=== PATIENT | male | born 1980 | race Caucasian/White ===

== ENCOUNTER 2016-11-10 20:28 | Emergency (ER) | payer BC, OTHER ==
[~2016-11-10] VITALS: Ht 175.3 cm; Wt 62.0 kg
[2016-11-10] MEDS ORDERED: ONDANSETRON 2MG/ML, 2ML IVPush ONE (21:00)
[2016-11-10] MEDS ORDERED: FAMOTIDINE 20 MG/2 ML IVP ONE (21:00)
[2016-11-10] MEDS ORDERED: SODIUM CHLORIDE FLUSH 10ML SYR IVF ONE (21:00)
[2016-11-10] MEDS ORDERED: SODIUM CHLORIDE 0.9% 1,000ML IVBOLUS ONE (21:00)
[2016-11-10] MEDS ORDERED: MAALOX/HYOSCYAMINE/LIDOCAINE 45 ML BTL PO ONE (21:00)
[2016-11-10] MEDS ORDERED: FAMOTIDINE 20 MG/2 ML ONE (21:10)
[2016-11-10] MEDS ORDERED: ONDANSETRON 2MG/ML, 2ML ONE (21:10)
[2016-11-10 21:23] LABS: HEMATOCRIT 48.5 % (39.2-51.8); HEMOGLOBIN 16.5 g/dL (13.7-18.0); WHITE BLOOD COUNT 7.5 x10^3/uL (3.4-10)
[2016-11-10] MEDS ORDERED: MAALOX/HYOSCYAMINE/LIDOCAINE 45 ML BTL ONE (21:24)
[2016-11-10 21:31] LABS: BLOOD UREA NITROGEN 12 mg/dL (7-18)
[2016-11-10 21:34] LABS: ASPARTATE AMINO TRANSFERASE 25 U/L (15-37)
[2016-11-10 22:00] VITALS: BP 102/68
== END 2016-11-10 23:32 | disposition home or self-care (01) ==
LOC: ED 23:22
DX: R10.33 Periumbilical pain (principal); Z88.5 Allergy status to narcotic agent
CPT/HCPCS: 36415; 74020; 76700; 80053; 81003; 83690; 85025; 96361; 96374; 96375; 99285; J2405; J7030; S0028

== ENCOUNTER → 2016-12-20 | Outpatient (CLI) | payer BC ==
[~2016-12-20] MED LIST: NONE PER PT
== END ==
LOC: STAR 12:26
PROVIDERS: ATTEND Surgery
DX: Z02.9 Encounter for administrative examinations, unspecified (principal)

== ENCOUNTER 2016-12-24 13:38 | Day surgery (SDC) | payer BC ==
[~2016-12-24] VITALS: Ht 175.3 cm; Wt 57.1 kg
[2016-12-24 13:57] VITALS: BP 98/62
[2016-12-24] MEDS ORDERED: LACTATED RINGERS 1,000 ML IV SCH (14:00)
[2016-12-24] MEDS ORDERED: LIDOCAINE 1%, 2ML SQ PRN (14:00)
[2016-12-24] MEDS ORDERED: EPINEPHRINE 1 MG/ML, 1ML ONE (14:32)
[2016-12-24] MEDS ORDERED: BUPIVACAINE/PF 0.5% ONE (14:32)
[2016-12-24] MEDS ORDERED: MIDAZOLAM 1 MG/ML, 2ML ONE (15:15)
[2016-12-24] MEDS ORDERED: FENTANYL PF 100 MCG/2ML ONE ×2 (15:15)
[2016-12-24] MEDS ORDERED: PROPOFOL 10 MG/ML, 20ML ONE (15:17)
[2016-12-24] MEDS ORDERED: ROCURONIUM 10 MG/ML ONE (15:18)
[2016-12-24] MEDS ORDERED: CEFAZOLIN 1,000 MG ONE ×2 (15:18)
[2016-12-24] MEDS ORDERED: NEOSTIGMINE 1 MG/ML, 10ML ONE (15:20)
[2016-12-24] MEDS ORDERED: GLYCOPYRROLATE 0.4 MG/2 ML, 2ML ONE (15:20)
[2016-12-24] MEDS ORDERED: OXYcodone 5 MG/5 ML ORAL.SOL UDC PO PRN (15:30)
[2016-12-24] MEDS ORDERED: ACETAMINOPHEN 325 MG TABLET PO PRN (15:30)
[2016-12-24] MEDS ORDERED: ONDANSETRON 2MG/ML, 2ML IVPush PRN (15:30)
[2016-12-24] MEDS ORDERED: PROMETHAZINE 25 MG/ML, 1ML IV PRN (15:30)
[2016-12-24] MEDS ORDERED: MEPERIDINE/PF 25MG/0.5ML IVPush PRN (15:30)
[2016-12-24] MEDS ORDERED: FENTANYL PF 100 MCG/2ML IV PRN (15:30)
[2016-12-24] MEDS ORDERED: HYDROmorphone 1 MG/ML, 1ML IV PRN (15:30)
[2016-12-24] MEDS ORDERED: OXYcodone 5 MG/5 ML ORAL.SOL UDC ONE (16:30)
== END 2016-12-24 18:40 ==
LOC: OUT 13:38 → MERGE 15:30 → OUT 18:40
PROVIDERS: ATTEND Surgery
DX: K42.9 Umbilical hernia without obstruction or gangrene (principal)
CPT/HCPCS: 49585; J0171; J0690; J2250; J2704; J2710; J3010; J3490; J7120

== ENCOUNTER 2017-01-13 21:25 | Emergency (ER) | payer BC ==
[~2017-01-13] VITALS: Ht 175.3 cm; Wt 59.0 kg
[2017-01-13 21:34] VITALS: BP 111/74
== END 2017-01-13 22:28 | disposition home or self-care (01) ==
LOC: ED 22:22
DX: L98.9 Disorder of the skin and subcutaneous tissue, unspecified (principal)
CPT/HCPCS: 99281

== ENCOUNTER 2017-06-20 19:42 | Emergency (ER) | payer BC, MEDICAID ==
[~2017-06-20] VITALS: Ht 172.7 cm; Wt 58.9 kg
[2017-06-20 19:54] VITALS: BP 133/76
== END 2017-06-20 20:35 | disposition home or self-care (01) ==
LOC: ED 20:20
DX: K02.9 Dental caries, unspecified (principal); F17.210 Nicotine dependence, cigarettes, uncomplicated
CPT/HCPCS: 99283

== ENCOUNTER 2019-03-28 00:03 | Emergency (ER) | payer MEDICAID ==
[~2019-03-28] VITALS: Ht 175.3 cm; Wt 59.1 kg
[2019-03-28 00:08] VITALS: BP 100/67
[2019-03-28 01:04] LABS: BASOPHILS # (AUTO) 0.03 x10^3/uL (0-0.1); BASOPHILS % (AUTO) 1 % (0-1); EOSINOPHILS # (AUTO) 0.63 x10^3/uL (0-0.4); EOSINOPHILS % (AUTO) 11 % (1-7); LYMPHOCYTES # (AUTO) 1.98 x10^3/uL (1-3.4); LYMPHOCYTES % (AUTO) 35 % (22-44); MD NO; MEAN CORPUSCULAR HEMOGLOBIN 31.1 pg (27.5-34.5); MEAN CORPUSCULAR HGB CONC 33.8 g/dL (33.2-36.2); MONOCYTES # (AUTO) 0.52 x10^3/uL (0.2-0.8); MONOCYTES % (AUTO) 9 % (2-9); NEUTROPHILS # (AUTO) 2.59 x10^3/uL (1.8-6.8); NEUTROPHILS % (AUTO) 45 % (42-75); PLATELET COUNT 176 x10^3/uL (130-400); RED BLOOD COUNT 4.94 x10^6/uL (4.38-5.82); RED CELL DISTRIBUTION WIDTH 13.5 % (9.4-14.8)
[2019-03-28 01:12] LABS: ANION GAP 5 mmol/L (5-15); CALCIUM 8.8 mg/dL (8.5-10.1); CHLORIDE 109 mmol/L (98-107); CREATININE 0.85 mg/dL (0.7-1.3)
--- NOTE | 2019-03-28 02:03 | NUR ---
PT BACK FROM [place] AT THIS TIME
== END 2019-03-28 02:59 | disposition home or self-care (01) ==
LOC: ED 01:26
DX: M79.651 Pain in right thigh (principal); F17.210 Nicotine dependence, cigarettes, uncomplicated
CPT/HCPCS: 36415; 80048; 85025; 99284

== ENCOUNTER 2019-06-01 08:48 | Emergency (ER) | payer MEDICAID ==
[~2019-06-01] VITALS: Ht 175.3 cm; Wt 61.0 kg
[2019-06-01 08:59] VITALS: BP 116/62
--- NOTE | 2019-06-01 09:15 | NUR ---
AMBULATORY TO RME FROM TRIAGE WITH STEADY GAIT
--- NOTE | 2019-06-01 09:15 | NUR ---
ASSUMED CARE OF PT AT THIS TIME FROM TRIAGE, AMBULATORY TO ROOM WITH STEADY GAIT. 39 Y/O M PRESENTS STATING "DENTAL PAIN FOR SOME TIME, BEEN ON AND OFF FOR MONTHS, GOT WORST PAST COUPLE DAYS, I WAS AT [facility] AND THEY SENT ME HERE." RATES PAIN 08/25. AWAITING EVAL PER ERP. A&OX4. DENIES CP, SOB, PAN, FEVERS, CHILLS, COUGH, N/V/D. CALL LIGHT IN REACH. FALL PRECAUTIONS IN PLACE. SIDE RAILS UPX2.
== END 2019-06-01 10:12 | disposition home or self-care (01) ==
LOC: ED 10:06
DX: K02.9 Dental caries, unspecified (principal); K08.89 Other specified disorders of teeth and supporting structures; F17.200 Nicotine dependence, unspecified, uncomplicated
CPT/HCPCS: 99283

== ENCOUNTER 2019-06-06 01:02 | Emergency (ER) | payer MEDICAID ==
[~2019-06-06] VITALS: Ht 175.3 cm; Wt 61.1 kg
[2019-06-06 01:07] VITALS: BP 136/94
--- NOTE | 2019-06-06 01:24 | NUR ---
PT CALLED FOR ROOM, NOT IN LOBBY AT THIS TIME. [employer] SAL[employer] AGENT STAFF STATES PT WALKED OUT FRONT DOOR.
== END 2019-06-06 01:27 | disposition left against medical advice (07) ==
LOC: ED 01:20
DX: K13.79 Other lesions of oral mucosa (principal); Z53.21 Procedure and treatment not carried out due to patient leaving prior to being seen by health care provider